=== PATIENT | female | born 1985 | race American Indian/Alaskan Native ===

== ENCOUNTER 2021-09-17 01:47 | Emergency (ER) | payer SELFPAY ==
--- NOTE | 2021-09-17 03:27 | Emergency Department Report ---
ED General Adult HPI - General Chief complaint: Nosebleed Stated complaint: NOSE BLEED Time Seen by Provider: 09/17/21 02:56 Source: patient Mode of arrival: Ambulatory Limitations: No Limitations - History of Present Illness Initial comments: 36-year-old -[place] female patient presents with complaints of nosebleed starting around 2:00 yesterday. She denies any prior history of nosebleeds, nose trauma, congestion, runny nose, OTC medication use or prescribed medication use, nasal trauma, headache, easy bruising/bleeding, or blood thinner use. No active bleeding, however patient states she can feel it dripping into the back of her throat. -: Sudden - Related Data Allergies Allergy/AdvReac Type Severity Reaction Status Date / Time No Known Allergies Allergy Verified 09/17/21 02:05 ED Review of Systems ROS: Stated complaint: NOSE BLEED Other details as noted in HPI Constitutional: denies: chills, fever, malaise ENT: epistaxis. denies: throat pain, congestion Respiratory: denies: cough Cardiovascular: denies: chest pain Neurological: as per HPI Hematological/Lymphatic: denies: swollen glands ED Past Medical Hx - Past Medical History Previous Medical History?: No - Surgical History Past Surgical History?: No ED Physical Exam - General Limitations: No Limitations General appearance: alert, in no apparent distress - Head Head exam: Present: atraumatic, normocephalic - Eye Eye exam: Present: normal appearance - ENT ENT exam: Present: normal exam. Absent: other (No bleeding noted to the nares bilaterally; no tenderness to palpation of than nose or swelling noted) - Neck Neck exam: Present: normal inspection - Respiratory Respiratory exam: Absent: respiratory distress - Cardiovascular Cardiovascular Exam: Present: regular rate (92) - Neurological Exam Neurological exam: Present: alert, oriented X3 - Psychiatric Psychiatric exam: Present: normal affect, normal mood - Skin Skin exam: Present: warm, dry, intact, normal color. Absent: rash ED Course Vital Signs 09/17/21 02:04 Temperature 98.5 F Pulse Rate 100 H Respiratory 18 Rate Blood Pressure 134/95 O2 Sat by Pulse 100 Oximetry ED Medical Decision Making - Medical Decision Making 36-year-old -[place] female patient presents with complaints of nosebleed starting around 2:00 yesterday. She denies any prior history of nosebleeds, nose trauma, congestion, runny nose, OTC medication use or prescribed medication use, nasal trauma, headache, easy bruising/bleeding, or blood thinner use. No active bleeding, however patient states she can feel it dripping into the back of her throat. No active bleeding noted on exam. Patient also denies any nasal picking. Recommend follow-up with primary care or ENT as needed. She is otherwise well- appearing, her vitals within normal limits, she is stable for discharge home. Strict return precautions were discussed in detail patient verbalized understand Critical care attestation.: If time is entered above; I have spent that time in minutes in the direct care of this critically ill patient, excluding procedure time. ED Disposition Clinical Impression: Nasal bleeding Disposition: HOME / SELF CARE / HOMELESS Is pt being admited?: No Condition: Stable Instructions: Nosebleed, [id number] Additional Instructions: You may try [id number] Afrin nasal spray if your nosebleed returns; do not use for more than 3 days Referrals: DANN LANDERS MD [Staff Physician] - as needed [facility] [Provider Group] - as needed Forms: Work/School Release Form(ED)
[2021-09-17 03:57] VITALS: BP 114/84
== END 2021-09-17 03:55 | disposition home or self-care (01) ==
LOC: ED 01:47
DX: R04.0 Epistaxis (principal)
CPT/HCPCS: 99282